=== PATIENT | female | born 1950 | race Caucasian/White ===

== ENCOUNTER 2020-05-04 22:47 | Emergency (ER) | payer MEDICARE, BC ==
[~2020-05-04 22:47] MED LIST: Iopamidol-370 76% 500 ML 1 ML ONE
[2020-05-04 23:19] LABS: #Eosinphils 0.1 thou/uL (0.0-0.7); #Lymphocytes 1.3 thou/uL (1.20-3.40); #Monocytes 1.1 thou/uL (0.11-0.59); #Neutrophils 9.7 thou/uL (1.40-6.50); %Basophils 0.2 % (0.0-1.0); %Eosinophils 0.8 % (0.0-10.0); %Lymphocytes 10.6 % (21.0-51.0); %Monocytes 8.7 % (0.0-10.0); %Neutrophils 79.6 % (42.0-75.0); Hemoglobin 15.7 g/dL (12.0-16.0); Mean Corpuscular HGB CONC 35.1 g/dL (32.0-36.0); Mean Corpuscular Hemoglobin 33.5 pg (27.0-31.0); Mean Corpuscular Volume 95.6 fL (78.0-98.0); Mean Platelet Volume 8.4 fL (7.4-10.4); Platelet Count 218 thou/uL (130-400); RBC Distribution Width 13.4 % (11.5-14.5); Red Blood Cell (RBC) Count 4.67 mill/uL (4.20-5.40); White Blood Cell (WBC) Count 12.2 thou/uL (4.8-10.8)
[2020-05-04] MEDS ORDERED: Ondansetron PF 4 MG/2 ML Vial ONE (23:26)
[2020-05-04] MEDS ORDERED: Morphine 4 MG/ML VIAL ONE (23:26)
[2020-05-04 23:40] LABS: ALT (SGPT) 29 U/L (8-55); AST (SGOT) 22 U/L (5-34); Albumin 4.1 g/dL (3.4-4.8); Alkaline Phosphatase 46 U/L (40-110); Anion Gap 15 mmol/L (10-20); BUN (Urea Nitrogen) 28 mg/dL (9.8-20.1); Bilirubin, Total 0.5 mg/dL (0.2-1.2); Calc. Creatinine Clearance 0 mL/min (70-130); Calcium 10.1 mg/dL (7.8-10.44); Carbon Dioxide 27 mmol/L (23-31); Chloride 99 mmol/L (98-107); Estimated GFR-MDRD 76; Globulin 2.7 g/dL (2.4-3.5); Glucose 191 mg/dL (83-110); Lipase 56 U/L (8-78); Potassium 3.6 mmol/L (3.5-5.1); Protein, Total 6.8 g/dL (6.0-8.3); Sodium 137 mmol/L (136-145)
[2020-05-05 00:59] LABS: Bacteria/HPF None Seen HPF (None Seen); Bilirubin Negative (Negative); Blood, Urine Trace (Negative); Clarity Clear (Clear); Glucose, Urine (Dipstick) Normal (Negative); Leukocyte 500 Leu/uL (Negative); Nitrite Negative (Negative); Protein, Urine (Dipstick) 10 mg/dL (Neg-Trace); Squamous Epithelial None Seen HPF (0-3); Urobilinogen Normal mg/dL (Less than 2); WBC/HPF Greater than 50 HPF (0-3)
--- NOTE | 2020-05-05 08:33 | CT ---
PRELIMINARY REPORT/[facility]/EMERGENCY AFTER HOURS PROCEDURE EXAM: CT Abdomen and Pelvis with Intravenous Contrast CLINICAL HISTORY: HX OF DIVERTICULITIS. PT REPORTS LLQ PAIN. SHARP PAIN. DENIES N/V/D. REPORTS BEGAN AT 2129. Surgical hx of hernia repair. Past medical hx of breast cancer TECHNIQUE: Axial computed tomography images of the abdomen and pelvis with intravenous contrast. CONTRAST: With; ISOVUE 370. 85ML COMPARISON: None provided. FINDINGS: LUNG BASES: No basilar airspace consolidation or pleural effusion. LIVER: Unremarkable. GALLBLADDER AND BILE DUCTS: The gallbladder is contracted. PANCREAS: Unremarkable. SPLEEN: Unremarkable. ADRENAL GLANDS: Unremarkable. KIDNEYS, URETERS, AND BLADDER: Unremarkable. No hydronephrosis or nephrolithiasis. No ureteral or bladder calculi. STOMACH AND BOWEL: There is a mild diverticulitis of the sigmoid colon, no CT evidence of perforation or abscess formati on. APPENDIX: No CT evidence for appendicitis. PERITONEUM: No free fluid. No free air. LYMPH NODES: No lymphadenopathy. REPRODUCTIVE: There is a calcific density in the uterus, likely represent the fibroid. VASCULATURE: No aortic aneurysm. BONES: No fracture or suspicious osseous abnormality. ABDOMINAL WALL AND SOFT TISSUES: Unremarkable. IMPRESSION: 1. There is a mild diverticulitis of the sigmoid colon, no CT evidence of perforation or abscess form ation. 2. There is a calcific density in the uterus, likely represent the fibroid. ELECTRONICALLY SIGNED BY: Marce Nix MD May 05, 2020 12:33:03 AM CDT This report is intended for review by the ordering physician only, in accordance of law. If you recei ve this report in error, please call [facility] at [phone]. FINAL REPORT CT ABDOMEN AND PELVIS: I agree with the preliminary report given by Marce Nix [facility]. POS: [facility]
--- NOTE | 2020-05-10 14:39 | EKG ---
Test Reason : Blood Pressure : / mmHG Vent. Rate : 066 BPM Atrial Rate : 066 BPM P-R Int : 142 ms QRS Dur : 070 ms QT Int : 360 ms P-R-T Axes : 046 022 030 degrees QTc Int : 377 ms Sinus rhythm with occasional Premature ventricular complexes Lateral infarct , age undetermined Abnormal ECG Confirmed by ELZBIETA TEJADA ([id number]), index editor [employer] ([id number]) on 05/10/2020 2:38:53 PM Referred By: Confirmed By:ELZBIETA TEJADA
== END 2020-05-05 01:05 | disposition home or self-care (01) ==
LOC: ERS 22:47
DX: K57.32 Diverticulitis of large intestine without perforation or abscess without bleeding (principal); E78.00 Pure hypercholesterolemia, unspecified; Z79.899 Other long term (current) drug therapy; Z85.3 Personal history of malignant neoplasm of breast
CPT/HCPCS: 36415; 74177; 80053; 81003; 81015; 83690; 85025; 93005; J2270; J2405; Q9967

== ENCOUNTER 2020-05-05 22:29 | Inpatient (IN) | payer MEDICARE, BC ==
[~2020-05-05 22:29] MED LIST changes: +Iopamidol 370 76% 100 ML VIAL ONE; -Iopamidol-370 76% 500 ML 1 ML ONE
[2020-05-05] MEDS ORDERED: Fentanyl 100 MCG/2 ML VIAL ONE (23:19)
[2020-05-05 23:51] LABS: Hemoglobin 16.8 g/dL (12.0-16.0); Mean Corpuscular HGB CONC 34.3 g/dL (32.0-36.0); Mean Corpuscular Volume 96.3 fL (78.0-98.0); Mean Platelet Volume 8.5 fL (7.4-10.4); Platelet Count 208 thou/uL (130-400); RBC Distribution Width 13.7 % (11.5-14.5); White Blood Cell (WBC) Count 17.1 thou/uL (4.8-10.8)
[2020-05-05] MEDS ORDERED: metroNIDAZOLE 500 MG in Premix Bag 1 BAG IVPB SCH (23:59)
[2020-05-06 00:18] LABS: Band 4 % (5-11); Lymphocytes 6 % (21-51); MDiff Complete? YES; Monocytes 3 % (0-10); Neutrophil 87 % (42-75); Platelet Morphology Comment Appears Adequate; RBC Morphology Normal
[2020-05-06 00:19] LABS: ALT (SGPT) 26 U/L (8-55); AST (SGOT) 34 U/L (5-34); Albumin 4.2 g/dL (3.4-4.8); Alkaline Phosphatase 46 U/L (40-110); Anion Gap 16 mmol/L (10-20); BUN (Urea Nitrogen) 28 mg/dL (9.8-20.1); Bilirubin, Total 0.6 mg/dL (0.2-1.2); Calc. Creatinine Clearance 0 mL/min (70-130); Calcium 10.4 mg/dL (7.8-10.44); Carbon Dioxide 27 mmol/L (23-31); Chloride 98 mmol/L (98-107); Estimated GFR-MDRD 64; Globulin 3.1 g/dL (2.4-3.5); Glucose 261 mg/dL (83-110); Lipase 34 U/L (8-78); Potassium 4.3 mmol/L (3.5-5.1); Protein, Total 7.3 g/dL (6.0-8.3); Sodium 137 mmol/L (136-145)
[2020-05-06 01:22] LABS: Bacteria/HPF None Seen HPF (None Seen); Bilirubin Negative (Negative); Blood, Urine 1+ (Negative); Clarity Clear (Clear); Glucose, Urine (Dipstick) >=1000 mg/dL (Negative); Leukocyte 250 Leu/uL (Negative); Nitrite Negative (Negative); Protein, Urine (Dipstick) 10 mg/dL (Neg-Trace); Squamous Epithelial 0-3 HPF (0-3); Urobilinogen Normal mg/dL (Less than 2); WBC/HPF 21-50 HPF (0-3)
[2020-05-06] MEDS ORDERED: D5 1/2 NS w/20 mEq KCL 1,000 ML IV SCH (02:30)
[2020-05-06] MEDS ORDERED: Ondansetron PF 4 MG/2 ML Vial IVP PRN ×2 (02:30→08:47)
[2020-05-06] MEDS ORDERED: Ondansetron ODT 4 MG TAB SL PRN (02:30)
[2020-05-06] MEDS ORDERED: Morphine 4 MG/ML VIAL SLOW IVP PRN (02:32)
[2020-05-06 02:51] VITALS: BMI 36.5
[2020-05-06] MEDS: Piperacillin/Tazobactam 4.5 GM in Sodium Chloride 0.9% 100 ML IVPB SCH ×3 (05:16→21:02)
--- NOTE | 2020-05-06 07:43 | CT ---
PRELIMINARY REPORT/[facility]/EMERGENCY AFTER HOURS PROCEDURE: This report was discussed with Jaclyn Hernandes MD by Tressa Cesar on May 06, 2020 01:11:00 CDT. A ddendum electronically signed by Tressa Cesar on May 06, 2020 1:11:29 AM CDT EXAM: CT Abdomen and Pelvis with Intravenous Contrast CLINICAL HISTORY: 70yo female presents for sudden worsening of LLQ abdominal pain. Diagnosed with div erticulitis last night, she started Flagyl and Levaquin this morning. This evening around 10pm she had sudden onset/worsening of sharp LLQ pain. Surgical hx of hernia repair. Medical hx of breast canc er TECHNIQUE: Axial computed tomography images of the abdomen and pelvis with intravenous contrast. CONTRAST: With; ISOVUE 370, 90ML COMPARISON: None provided. FINDINGS: LUNG BASES: Bibasilar subsegmental airspace disease. Mild cardiomegaly. Coronary artery disease. LIVER: The liver is hypoenhancing. GALLBLADDER AND BILE DUCTS: The gallbladder is contracted. No calcified stone. No ductal dilation. PANCREAS: Unremarkable. SPLEEN: The spleen is normal size. Multiple punctate Granulomas in the Spleen. ADRENAL GLANDS: Unremarkable. KIDNEYS, URETERS, AND BLADDER: Unremarkable. No hydronephrosis or nephrolithiasis. No ureteral or meredith dder calculi. STOMACH AND BOWEL: Colonic diverticulosis. There are wall thickening of multiple small bowel loops w ith adjacent fat straining. Colonic diverticulosis. Wall thickening of the sigmoid colon. Fat stranding around a sigmoid diverticulum. Adjacent air in the mesentery. APPENDIX: No CT evidence for appendicitis. PERITONEUM: No free fluid. No free air. LYMPH NODES: No lymphadenopathy. REPRODUCTIVE: Lobular appearance of the uterus. 3.5 cm coarsely calcified right-sided uterine fibroi d. 2.9 cm calcified fibroid at the uterine fundus. The ovaries are normal. VASCULATURE: No aortic aneurysm. Atherosclerosis. BONES: No fracture or suspicious osseous abnormality. Multilevel degenerative disc disease. Osteoar thritis of the bilateral hips and SI joints. ABDOMINAL WALL AND SOFT TISSUES: Unremarkable. IMPRESSION: Colonic diverticulosis with fat stranding and a sigmoid diverticulum with a small focus o f free air in the mesentery concerning for diverticulitis with perforation. Wall thickening of multiple small bowel loops with adjacent fat stranding concerning for an infectious or inflammatory e nteritis. Lobular appearance of ears with several fibroids. ELECTRONICALLY SIGNED BY: Juan Luis Harris MD May 06, 2020 1:06:17 AM CDT FINAL REPORT: EXAM: CT ABDOMEN AND PELVIS HISTORY: Left lower quadrant pain. Diverticulitis. Worsening pain. COMPARISON: 05/05/2020. Procedure: Multiple contiguous axial images were obtained and a CT of the abdomen and pelvis with IV contrast. C oronal reformats were performed. FINDINGS: Lower Chest: Chronic changes. Vessels: Normal caliber. Heart: Normal caliber. Abdomen: Portal vein:Patent. Gallbladder: Contracted due to nonfasting state. Liver: within normal limits. Pancreas: within normal limits. Spleen: within normal limits. Adrenals: within normal limits. Kidneys: Symmetric enhancement. No obstructive uropathy. Peritoneum: No ascites or free air, no fluid collection. Bowel: Limited evaluation due to the lack of oral contrast administration. No evidence of small bowel obstruction. There is bowel wall thickening involving jejunal loops. Correlate for enteritis. Ileocecal junction is unremarkable. Normal caliber appendix. Scattered diverticula throughout the col on. There is evidence of bowel wall thickening and pericolonic fat stranding involving the sigmoid colon. Mild diverticulitis is noted. No abscess. A small focus of extraluminal air may represent a co ntained perforation. The degree of inflammatory change has not significantly progressed. Mesentery and Retroperitoneum: No enlarged mesenteric or retroperitoneal lymph nodes. Abdominal Wall: within normal limits. Pelvis: Reproductive Organs: Stable degenerated and calcified leiomyomas. Pelvis: No mass, lymphadenopathy, free air or free fluid. Bladder: within normal limits. Bones: within normal limits. IMPRESSION: 1. This report is in agreement with initial report by [facility]. 2. Redemonstration of diverticulosis and diverticulitis. Small focus of extraluminal air may represen t a contained perforation. 3. Mild mucosal thickening involving segment of small bowel. Correlate for enteritis. Transcribed Date/Time: 05/06/2020 8:00 AM
[2020-05-06] MEDS ORDERED: Ondansetron ODT 4 MG TAB PO PRN (08:47)
[2020-05-06] MEDS ORDERED: Ondansetron ODT 8 MG TAB PO PRN (08:47)
[2020-05-06] MEDS ORDERED: Ondansetron ODT 8 MG TAB SL PRN (08:47)
[2020-05-06] MEDS ORDERED: Dextrose 50% Abboject 50 ML SYRINGE SLOW IVP PRN (08:50)
[2020-05-06] MEDS ORDERED: HumaLOG 300 UNITS/3 ML VIAL SC PRN (08:50)
[2020-05-06] MEDS ORDERED: Dextrose 5% in Water 1,000 ML IV PRN (08:50)
[2020-05-06] MEDS ORDERED: Dexamethasone 1 MG TAB PO SCH (09:15)
[2020-05-06] MEDS: Lactated Ringer's 1,000 ML IV SCH ×2 (12:33→20:43)
--- NOTE | 2020-05-06 13:03 | PDOC.FMACP ---
Advance Care Planning - Problem (1) Abdominal pain Status: Acute Code(s): R10.9 - UNSPECIFIED ABDOMINAL PAIN (2) Diverticulitis Status: Acute Code(s): K57.92 - DVTRCLI OF INTEST, PART UNSP, W/O PERF OR ABSCESS W/O BLEED - Note Participants: patient, palliative care Summary: Palliative Care was introduced and Advanced Care Planning was discussed, Ms Barrow was allowed an opportunity to decline. The diagnosis, prognosis and goals of care were discussed. Appropriate forms and documentation to accomplish the goals of care were discussed. MPOA was completed and Evelyn Barrow was made primary decision maker. Information in relation to Directive to Physicians was given. All questions were answered. Time Spent (mins): 25
[2020-05-06] MEDS: Morphine 4 MG/ML VIAL SLOW IVP PRN ×2 (15:30→20:45)
[2020-05-06] MEDS: levETIRAcetam 500 MG TAB PO SCH ×2 (17:08→20:49)
[2020-05-06] MEDS: Pantoprazole 40 MG VIAL IVP SCH (17:08)
[2020-05-06] MEDS: Lisinopril 20 MG TAB PO SCH (17:08)
[2020-05-06] MEDS: Rosuvastatin 10 MG TAB PO SCH (20:49)
[2020-05-06] MEDS: Enoxaparin Sodium 40 MG/0.4 ML SYRINGE SC SCH (20:50)
[2020-05-06] MEDS: Exemestane 25 MG TAB PO SCH (20:50)
--- NOTE | 2020-05-06 22:02 | HP ---
HISTORY OF PRESENT ILLNESS: Annabelle Barrow is a 70-year-old female, who lives with her daughter, admitted from the ER for diverticulitis. Two days ago, she was seen in the emergency room and diagnosed with diverticulitis and sent home with antibiotics. She states she returned and was admitted to the emergency room in the wee hours of the morning. She states her pain became exquisitely worse. White count was 17, hemoglobin 16, basic metabolic profile normal. CAT scan of the abdomen and pelvis obtained, she was noted to have chronic diverticulosis with wall thickening and multiple small loops of adjacent small bowel in left lower quadrant, colonic diverticulosis with thickening of sigmoid colon stranding consistent with diverticulitis. She had air in the mesentery. She was admitted for intravenous antibiotics, kept n.p.o. She has not had any nausea or vomiting. She has not had a fever. She states she feels better since being admitted. She states that in August or September 2019, she was seen for diverticulitis and sent to rehab for this, where she had antibiotics and strengthening. She states she sees Dr. Georgi Love for colonoscopy and has had polyps and is due for another colonoscopy soon in the 3-year interval. ALLERGIES: HYDROCODONE, TRAMADOL. SOCIAL HISTORY: Tobacco, none. Alcohol, none. MEDICATIONS: 1. Lisinopril. 2. Rosuvastatin. 3. Hydrochlorothiazide. 4. Exemestane. 5. Dexamethasone. 6. Furosemide. PAST MEDICAL HISTORY: Hypertension. History of breast cancer, status post left mastectomy. She has some minimal left-sided weakness after craniotomy for benign tumor, for which she underwent radiation and treatment for. She walks however unassisted. She notes having seen Dr. Gonzalez in the last few months, undergoing a cardiac stress test, it was unremarkable. She had some venous insufficiency, he is treating. He released her from a cardiac standpoint, told her heart was good. PAST SURGICAL HISTORY: Umbilical hernia repair, left mastectomy, colonoscopies with polypectomies, due anytime now for a 3-year interval colonoscopy. She is treated for elevated cholesterol. PHYSICAL EXAMINATION: VITAL SIGNS: Weight 68 kg (151 pounds), height 4 feet 6 inches, BMI 36. HEAD, EARS, EYES, NOSE AND THROAT: Unremarkable. LUNGS: Clear to auscultation. CARDIAC: Regular rate and rhythm without murmur or gallop. ABDOMEN: Protuberant, mildly tympanitic. Tenderness in the left lower quadrant with guarding in other quadrants. ABDOMEN: Soft without tenderness. Occasional bowel sounds. EXTREMITIES: No ankle edema. NEUROLOGICAL: Intact. LYMPHATICS: No lymphadenopathy in neck, groin, or axilla. LABORATORY DATA: BUN 28, creatinine 0.87, glucose 261, Accu-Chek 161, creatinine 0.87. White count 17, hemoglobin 16. ASSESSMENT AND PLAN: 1. Diverticulitis. She is due for colonoscopy in the near future with [facility]. I have encouraged her to pursue this in the next 4 to 8 weeks. She has diverticulitis and she seemed to be responding to intravenous antibiotics and bowel rest. We will continue that regimen. 2. Hypertension. 3. Elevated glucose. Check hemoglobin A1c in the morning. Accu-Cheks. We may need to obtain medical consult to address this. Job ID: [id number]
[2020-05-07] MEDS: Lactated Ringer's 1,000 ML IV SCH ×4 (05:05→22:53)
[2020-05-07] MEDS: Morphine 4 MG/ML VIAL SLOW IVP PRN ×2 (05:07→08:37)
[2020-05-07] MEDS: Piperacillin/Tazobactam 4.5 GM in Sodium Chloride 0.9% 100 ML IVPB SCH ×3 (05:11→21:24)
[2020-05-07 05:40] LABS: #Lymphocytes 1.5 thou/uL (1.20-3.40); #Monocytes 0.8 thou/uL (0.11-0.59); #Neutrophils 16.7 thou/uL (1.40-6.50); %Basophils 0.1 % (0.0-1.0); %Eosinophils 0.3 % (0.0-10.0); %Monocytes 4.2 % (0.0-10.0); %Neutrophils 87.5 % (42.0-75.0); Hemoglobin 16.2 g/dL (12.0-16.0); Mean Corpuscular HGB CONC 32.6 g/dL (32.0-36.0); Mean Corpuscular Hemoglobin 32.1 pg (27.0-31.0); Mean Corpuscular Volume 98.4 fL (78.0-98.0); Mean Platelet Volume 8.1 fL (7.4-10.4); Platelet Count 118 thou/uL (130-400); Platelet Morphology Comment Appears Decreased; RBC Distribution Width 13.6 % (11.5-14.5); Red Blood Cell (RBC) Count 5.06 mill/uL (4.20-5.40); White Blood Cell (WBC) Count 19.1 thou/uL (4.8-10.8)
[2020-05-07 05:47] LABS: Hemoglobin A1c 5.8 % (4.0-6.0)
[2020-05-07] MEDS: levETIRAcetam 500 MG TAB PO SCH ×2 (08:33→21:09)
[2020-05-07] MEDS: Pantoprazole 40 MG VIAL IVP SCH (08:35)
[2020-05-07] MEDS: Lisinopril 20 MG TAB PO SCH (09:29)
[2020-05-07] MEDS: Ketorolac Tromethamine 30 MG/ML VIAL IVP PRN (13:35)
--- NOTE | 2020-05-07 19:18 | PRG ---
DATE OF SERVICE: 05/07/2020 SUBJECTIVE: Annabelle Barrow is feeling better. She has not had a fever. Her pain is improved. She is reporting belching, but no flatus or bowel movements. OBJECTIVE: VITAL SIGNS: Temperature 98 degrees, pulse 67, blood pressure 95/36. This morning, her white count is 19, hemoglobin 16. Her differential is unremarkable. Her glucose is 109 to 119. LUNGS: Clear to auscultation. CARDIAC: Regular rate and rhythm murmur or gallop. ABDOMEN: Slightly distended and tympanitic. Guarding in her left lower quadrant. Upper abdomen is soft. EXTREMITIES: Unremarkable. ASSESSMENT AND PLAN: Diverticulitis. Her white count persists. She is on antibiotics. Bowel rest. She asked for liquids, but I have declined due to belching like a bowel activity. We will obtain abdominal x-rays in the morning. Repeat her laboratories. Make further recommendations on clinical course. Job ID: [id number]
[2020-05-07] MEDS: Rosuvastatin 10 MG TAB PO SCH (21:08)
[2020-05-07] MEDS: Enoxaparin Sodium 40 MG/0.4 ML SYRINGE SC SCH (21:09)
[2020-05-07] MEDS: Exemestane 25 MG TAB PO SCH (21:23)
[2020-05-08] MEDS: Ketorolac Tromethamine 30 MG/ML VIAL IVP PRN ×2 (05:32→21:13)
[2020-05-08] MEDS: Piperacillin/Tazobactam 4.5 GM in Sodium Chloride 0.9% 100 ML IVPB SCH ×3 (05:33→21:12)
[2020-05-08 06:13] LABS: #Lymphocytes 0.7 thou/uL (1.20-3.40); #Monocytes 0.7 thou/uL (0.11-0.59); #Neutrophils 14.7 thou/uL (1.40-6.50); %Basophils 0.1 % (0.0-1.0); %Eosinophils 0.2 % (0.0-10.0); %Lymphocytes 4.3 % (21.0-51.0); %Monocytes 4.5 % (0.0-10.0); %Neutrophils 90.9 % (42.0-75.0); Hemoglobin 16.7 g/dL (12.0-16.0); Mean Corpuscular HGB CONC 33.6 g/dL (32.0-36.0); Mean Corpuscular Hemoglobin 33.3 pg (27.0-31.0); Mean Corpuscular Volume 99.3 fL (78.0-98.0); Mean Platelet Volume 7.7 fL (7.4-10.4); Platelet Count 164 thou/uL (130-400); RBC Distribution Width 13.5 % (11.5-14.5); Red Blood Cell (RBC) Count 5.02 mill/uL (4.20-5.40); White Blood Cell (WBC) Count 16.1 thou/uL (4.8-10.8)
[2020-05-08 06:33] LABS: ALT (SGPT) 17 U/L (8-55); AST (SGOT) 22 U/L (5-34); Albumin 2.9 g/dL (3.4-4.8); Alkaline Phosphatase 49 U/L (40-110); Anion Gap 16 mmol/L (10-20); BUN (Urea Nitrogen) 14 mg/dL (9.8-20.1); Bilirubin, Total 0.8 mg/dL (0.2-1.2); Calc. Creatinine Clearance 100 mL/min (70-130); Calcium 8.7 mg/dL (7.8-10.44); Carbon Dioxide 20 mmol/L (23-31); Chloride 103 mmol/L (98-107); Estimated GFR-MDRD Greater than 90; Globulin 2.8 g/dL (2.4-3.5); Glucose 80 mg/dL (83-110); Potassium 3.5 mmol/L (3.5-5.1); Protein, Total 5.7 g/dL (6.0-8.3); Sodium 135 mmol/L (136-145)
--- NOTE | 2020-05-08 08:43 | RAD ---
RADIOGRAPH CHEST ONE VIEW RADIOGRAPH ABDOMEN 2 VIEWS: DATE: 05/08/2020 HISTORY: 70-year-old female with abdominal distention and diverticulitis. FINDINGS: There are no airspace densities or pulmonary edema. The lateral costophrenic angles are sharp. There is no evidence of pneumothorax or pneumoperitoneum. There are questionable bilateral small pleural effusions. There is no evidence of dilated small bowel loops. There are no differential air/fluid levels. IMPRESSION: 1) questionable bilateral small pleural effusions. Recommend lateral view of chest to confirm. 2) otherwise no acute pulmonary findings. 3) no evidence of bowel obstruction.
[2020-05-08] MEDS: Lactated Ringer's 1,000 ML IV SCH ×2 (09:05→16:28)
[2020-05-08] MEDS: levETIRAcetam 500 MG TAB PO SCH ×2 (09:08→21:13)
[2020-05-08] MEDS: Pantoprazole 40 MG VIAL IVP SCH (09:09)
[2020-05-08] MEDS: Lisinopril 20 MG TAB PO SCH (09:09)
--- NOTE | 2020-05-08 12:29 | PRG ---
DATE OF SERVICE: 05/08/2020 SUBJECTIVE: Annabelle Barrow is doing well today. She feels much better. Because of her protruded abdomen, I obtained x-rays, and these did not reveal any free air. Bowel gas pattern is nonspecific. OBJECTIVE: VITAL SIGNS: Temperature 98.2 degrees, respiratory rate 16, blood pressure 90/60. LUNGS: Clear to auscultation. CARDIAC: Regular rate and rhythm without murmur or gallop. ABDOMEN: Soft. Less tenderness in the left lower quadrant. Nontender elsewhere. LABORATORY DATA: White count 16,000, hemoglobin 16.7. Basic metabolic profile is normal. The patient reports passing flatus and having a bowel movement. ASSESSMENT AND PLAN: Diverticulitis. Overall, she feels better. We will plan to start her on clear liquids and advance her to full liquids in the morning. Anticipate possible discharge home tomorrow pending her clinical course. She should be on a low-fiber diet for 2 to 3 weeks, transition to high-fiber after that. We would recommend that she advance her diet slowly at home to a soft diet, low-fiber for 2 weeks, transition to high-fiber. We will have Dietary talk to her about this. We will reassess her tomorrow. Job ID: [id number]
[2020-05-08] MEDS ORDERED: Dexamethasone 4 MG TAB PO SCH (20:45)
[2020-05-08] MEDS: Rosuvastatin 10 MG TAB PO SCH (21:12)
[2020-05-08] MEDS: Enoxaparin Sodium 40 MG/0.4 ML SYRINGE SC SCH (21:13)
[2020-05-08] MEDS: Exemestane 25 MG TAB PO SCH (21:13)
[2020-05-09] MEDS: Lactated Ringer's 1,000 ML IV SCH ×2 (01:05→14:37)
[2020-05-09] MEDS: Piperacillin/Tazobactam 4.5 GM in Sodium Chloride 0.9% 100 ML IVPB SCH ×2 (05:47→14:37)
[2020-05-09 07:02] LABS: Mean Corpuscular HGB CONC 33.6 g/dL (32.0-36.0); Mean Corpuscular Hemoglobin 32.2 pg (27.0-31.0); Mean Corpuscular Volume 95.9 fL (78.0-98.0); Mean Platelet Volume 8.2 fL (7.4-10.4); Platelet Count 182 thou/uL (130-400); RBC Distribution Width 13.3 % (11.5-14.5); Red Blood Cell (RBC) Count 4.33 mill/uL (4.20-5.40); White Blood Cell (WBC) Count 13.5 thou/uL (4.8-10.8)
[2020-05-09 08:11] LABS: Band 3 % (5-11); Lymphocytes 8 % (21-51); MDiff Complete? YES; Monocytes 2 % (0-10); Neutrophil 87 % (42-75); Platelet Morphology Comment Appears Adequate; RBC Morphology Normal
[2020-05-09] MEDS: levETIRAcetam 500 MG TAB PO SCH (08:33)
[2020-05-09] MEDS: Lisinopril 20 MG TAB PO SCH (08:34)
[2020-05-09] MEDS: Dexamethasone 4 MG TAB PO SCH ×2 (08:34→12:37)
[2020-05-09] MEDS ORDERED: Acetaminophen 500 MG TAB PO PRN (13:24)
[2020-05-09] MEDS ORDERED: Ibuprofen 600 MG TAB PO PRN (13:24)
[2020-05-09] MEDS: Pantoprazole 40 MG VIAL IVP SCH (14:37)
[2020-05-09 16:07] VITALS: BP 113/59; TEMP 98.2
[2020-05-09] MEDS ORDERED: Amoxicillin/Potassium Clav 875 MG TAB PO SCH (21:00)
[2020-05-10] MEDS ORDERED: Polyethylene Glycol 3350 17 GM Packet PO SCH (09:00)
[2020-05-11] MEDS ORDERED: Dexamethasone 4 MG TAB PO SCH (08:00)
--- NOTE | 2020-05-11 15:08 | DIS ---
DATE OF ADMISSION: 05/06/2020 DATE OF DISCHARGE: 05/09/2020 DISCHARGE DIAGNOSES: Diverticulitis and morbid obesity. HOME MEDICATIONS: 1. Lisinopril/hydrochlorothiazide. 2. Dexamethasone. 3. Furosemide. 4. Levetiracetam. PROCEDURES DURING THIS HOSPITALIZATION: CAT scan of abdomen and pelvis, bowel rest, and intravenous antibiotics. DISCHARGE MEDICATIONS: Resume her home medications and Augmentin 500 b.i.d. for 10 days. FOLLOWUP: Follow up in my office in 3 to 4 weeks. Follow up with her endoscopy later this year as scheduled. HISTORY: A 70-year-old morbidly obese female presents with symptoms of diverticulitis. She was initially treated as an outpatient, but developed worsening pain. Seen in the emergency room, underwent a CAT scan demonstrating the diverticulitis changes, admitted. She was put at bowel rest, intravenous antibiotics, and as her pain resolved and her leukocytosis improved, her diet was advanced, she began having bowel movements. She has been afebrile. She was seen by dietary, counseled on a low-fiber diet for 2 weeks, transition to high-fiber after that. She has a relationship with personal companion, has colonoscopy planned later this year. She will resume her home medications and follow up in my office in 3 to 4 weeks. Job ID: [id number]
[2020-05-14] MEDS ORDERED: Dexamethasone 4 MG TAB PO SCH (08:00)
[2020-05-16] MEDS ORDERED: Dexamethasone 4 MG TAB PO SCH (08:00)
== END 2020-05-09 18:33 | disposition home or self-care (01) | DRG 392 ==
LOC: ERS 22:29 → SJJU 05-06 01:39
PROVIDERS: ADMIT Specialist; ATTEND Specialist
DX: K57.32 Diverticulitis of large intestine without perforation or abscess without bleeding (principal); I10 Essential (primary) hypertension; R73.9 Hyperglycemia, unspecified; E66.01 Morbid (severe) obesity due to excess calories; Z88.8 Allergy status to other drugs, medicaments and biological substances; Z85.3 Personal history of malignant neoplasm of breast; Z90.12 Acquired absence of left breast and nipple; Z68.36 Body mass index [BMI] 36.0-36.9, adult
CPT/HCPCS: 36415; 36416; 74022; 74177; 80053; 81003; 81015; 83036; 83690; 85025; 93005; 94760; 96365; 96366; 96368; 96374; 96375; C9113; J1650; J1885; J1956; J2270; J2405; J2543; J3010; J3480; J3490; J8540; Q9967

== ENCOUNTER 2020-05-10 22:31 | Emergency (ER) | payer MEDICARE, BC | END 2020-05-11 00:59 | disposition home or self-care (01) | LOC: ERS 22:31 | DX: R60.0 Localized edema (principal); E78.00 Pure hypercholesterolemia, unspecified; Z79.899 Other long term (current) drug therapy | CPT/HCPCS: 99283 ==

== ENCOUNTER 2020-05-12 13:03 | Emergency (ER) | payer MEDICARE, BC ==
--- NOTE | 2020-05-12 13:51 | RAD ---
RADIOGRAPH CHEST ONE VIEW RADIOGRAPH ABDOMEN 2 VIEWS: DATE: 05/12/2020 HISTORY: 70-year-old female with constipation. Unable to have bowel movement. FINDINGS: There are no airspace densities or pulmonary edema. The lateral costophrenic angles are sharp. There is no cardiomegaly. There is no evidence of pneumothorax or pneumoperitoneum. There is no evidence of dilated small bowel loops, differential air-fluid levels, or organomegaly. At least 2 moderately sized calcified uterine fibroids in the pelvis. IMPRESSION: 1) No acute cardiopulmonary findings. 2) no evidence of bowel obstruction.
== END 2020-05-12 16:19 | disposition home or self-care (01) ==
LOC: ERS 13:03
DX: K59.00 Constipation, unspecified (principal); K64.4 Residual hemorrhoidal skin tags; E78.00 Pure hypercholesterolemia, unspecified; Z85.3 Personal history of malignant neoplasm of breast; Z79.899 Other long term (current) drug therapy
CPT/HCPCS: 74022

== ENCOUNTER 2020-05-21 12:55 | Outpatient (CLI) | payer MEDICARE, BC ==
--- NOTE | 2020-05-21 14:09 | MRI ---
Exam: Brain MRI with and without contrast HISTORY: Follow-up meningioma. COMPARISON: 09/05/2019 FINDINGS: Gradient echo sequence: No hemorrhage Calvarium: Appropriate T1 marrow signal intensity. Stable postsurgical changes involving the right fr ontal and temporal calvarium. Midline brain parenchyma: Unremarkable Cerebrum:Stable postsurgical change with encephalomalacia and gliosis involving the right temporal lo be and to lesser extent right frontal lobe. There is decreased vasogenic edema involving the right frontal lobe. Ventricles: No evidence of hydrocephalus. Sinuses and mastoid air cells: Adequate aeration Diffusion: Central arterial flow is maintained. Absent restricted diffusion. Postcontrast images:Redemonstration of a partially calcified anterior right parafalcine meningioma wi th heterogeneous enhancement measuring 1.5 x 1.6 x 1.9 cm (previous the measuring 1.5 x 2.0 x 1.8 cm). Redemonstration of a meningioma centered in the right sphenoid bone with irregular/spiculated ap pearance of the sphenoid bone. There is abnormal enhancement extending into the lateral right orbit, extraconal in location. There is also decreasing abnormal soft tissue signal intensity with av id enhancement in the right unisaw operator space and posterior to the right maxillary sinus. This area of abnormal enhancement measures 2.3 x 3.0 cm (previously measuring 3.4 x 3.3 cm). There are no new f oci of abnormal intracranial or extracranial enhancement. IMPRESSION: 1. Redemonstration of a right parafalcine meningioma which is slightly decreased in size. 2. Abnormal enhancing soft tissue signal in the right middle cranial fossa with extension into the la teral right orbit as well as into the right unisaw operator space/posterior the right maxillary sinus. The degree of abnormal soft tissue has decreased. Transcribed Date/Time: 05/21/2020 2:28 PM
[2020-05-21] MEDS ORDERED: Magnevist 469MG/ML 20 ML VIAL ONE (16:40)
== END 2020-05-21 12:56 | disposition home or self-care (01) ==
LOC: MRI 12:55
PROVIDERS: ATTEND Neurological Surgery
DX: D32.0 Benign neoplasm of cerebral meninges (principal); R93.0 Abnormal findings on diagnostic imaging of skull and head, not elsewhere classified
CPT/HCPCS: 70553; A9579

== ENCOUNTER 2020-07-23 09:27 | Outpatient (CLI) | payer MEDICARE, BC ==
--- NOTE | 2020-07-23 11:56 | CT ---
ABDOMEN AND PELVIC CT SCAN WITH AND WITHOUT IV CONTRAST: Date: 07/23/2020 HISTORY: Lower abdominal pain, left lower quadrant and suprapubic pain. COMPARISON: 05/06/2020. 09/30/2019. FINDINGS: Minimal linear parenchymal and pleural based parenchymal changes in the lower lung zone, possibly sub segmental atelectasis or minimal chronic change. There are several small foci of free intraperitoneal air in the right upper quadrant adjacent to the right diaphragm and between the liver and diaphragm. Otherwise, liver, gallbladder, pancreas, spleen, and adrenal glands are unremarkable. No evidence fo r renal calculus or acute obstruction, or solid or cystic renal mass. No CT evidence for acute jasmyn endicitis. There is again noted to be extensive diverticulosis changes involving the sigmoid colon with some per icolonic fat stranding around the sigmoid colon in close association with the adjacent uterus and als o with the posterior bladder on the left side. There is an irregular thin-walled somewhat lobulated a ppearing air collection projecting off the sigmoid colon which is partially surrounding the uterus, m easuring 2.0 x 5.0 cm in size, probably representing a walled-off air collection from the sigmoid col on. There is minimal scattered fat stranding, evidence for some inflammatory change in this region ar ound the colon and around the bladder and around the uterus. No abnormal free intraperitoneal fluid. No evidence for a drainable abscess. IMPRESSION: 1. Evidence for chronic diverticulosis involving the left colon and persistent diverticulitis change s involving the sigmoid portion of the colon, now with a primary air collection extending from the co arie to a region around the uterus and to the edge of the bladder. Evidence for a walled-off extralumi nal collection. In addition, there are several small foci of free intraperitoneal air around the live r and between the liver and hemidiaphragm. 2. No significant drainable abscess or abnormal free intraperitoneal fluid. 3. Incidental multiple calcified uterine leiomyomas. Findings were discussed with Dr. Campo by phone at 1030 hours. CODE CR. POS: [facility]
[2020-07-23] MEDS ORDERED: Iopamidol 370 76% 100 ML VIAL ONE (13:32)
== END 2020-07-23 09:28 | disposition home or self-care (01) ==
LOC: BICCT 09:27
PROVIDERS: ATTEND Family Medicine
DX: K57.30 Diverticulosis of large intestine without perforation or abscess without bleeding (principal); R10.9 Unspecified abdominal pain; K57.32 Diverticulitis of large intestine without perforation or abscess without bleeding; D25.9 Leiomyoma of uterus, unspecified
CPT/HCPCS: 74178; Q9967

== ENCOUNTER 2020-12-29 08:58 | Outpatient (CLI) | payer MEDICARE, BC ==
[2020-12-29] MEDS ORDERED: Iopamidol-370 76% 500 ML 1 ML ONE (10:10)
[2020-12-29] MEDS ORDERED: Iopamidol 370 76% 50 ML VIAL FS ONE (10:10)
--- NOTE | 2020-12-29 11:45 | CT ---
CT ABDOMEN AND PELVIS WITH AND WITHOUT IV CONTRAST 12/29/2020 CLINICAL INFORMATION: Colovesical fistula. COMPARISON: 12/02/2020 Technique: Multiple contiguous axial CT images are obtained through the abdomen and pelvis with IV contrast. Cor onal reformatted images are provided. FINDINGS: Lower Chest: Dependent bibasilar atelectasis. Small hiatal hernia is present. Vessels: Vascular calcifications in the abdominal aorta and iliac arteries. Abdomen: Portal vein:Patent Gallbladder: Within normal limits for CT imaging. Liver: within normal limits. Spleen: Multiple splenic granulomata. Pancreas: within normal limits. Adrenals: within normal limits. Kidneys: within normal limits. Bowel: Small bowel loops are normal in caliber. Small amount retained fecal material seen throughout the colon. Multiple colonic diverticula are visualized. Again noted is the gas collection emanating from the inferior sigmoid colon which measures approximately 8.9 cm craniocaudal x5.9 cm AP x4.6 cm t ransverse and overall similar in size to the prior exam. This collection again abuts the posterior superior aspect of the lower urinary bladder with mild focal thickening of the wall of the urinary bl adder in this location. Gas is again seen within the urinary bladder. Arnett catheter is noted in place in the urinary bladder. Delayed imaging post cystogram does not demonstrate contrast within the large gas collection adjacent to the sigmoid colon which is again presumed to represent a contained rupture. Appendix: The appendix is visualized and normal in caliber. Peritoneum: No ascites or free air; no fluid collection. Mesentery and Retroperitoneum: No enlarged mesenteric or retroperitoneal lymph nodes. Abdominal Wall: within normal limits. Pelvis: Reproductive Organs: Calcified uterine fibroids are again seen. Low-density structure with calcificat ions posteriorly is again seen within the right posterior aspect of the uterine fundus which may also represent a uterine fibroid. Bladder: As described above. Bones: Bilateral hip osteoarthritis is present with degenerative changes in the spine. IMPRESSION: 1. Persistent large gas collection within the pelvis emanating from the sigmoid colon which is again likely reflective of a chronic contained perforation or less likely a giant colonic diverticulum. Gas is again present within urinary bladder which is suspicious for a colovesical fistula. However, a retrograde cystogram was performed demonstrating mild distention of a contrast-filled urinary bladder, but no contrast is seen extending into the large gas collection. 2. Colonic diverticulosis. 3. Hiatal hernia. 4. Multiple uterine fibroids with calcification of the majority of the uterine fibroids.
== END 2020-12-29 08:59 | disposition home or self-care (01) ==
LOC: CT 08:58
PROVIDERS: ATTEND Urology
DX: N32.1 Vesicointestinal fistula (principal); K57.32 Diverticulitis of large intestine without perforation or abscess without bleeding; K44.9 Diaphragmatic hernia without obstruction or gangrene; D25.9 Leiomyoma of uterus, unspecified; R14.3 Flatulence
CPT/HCPCS: 74178; 82565; Q9967

== ENCOUNTER 2021-04-28 07:46 | Inpatient (IN) | payer MEDICARE, BC ==
[2021-04-28] MEDS ORDERED: Iopamidol-370 76% 500 ML 1 ML ONE (08:53)
[2021-04-28 09:03] LABS: Clarity Turbid (Clear)
[2021-04-28 09:04] LABS: Bilirubin 1+ (Negative); Blood, Urine Large (Negative); Glucose, Urine (Dipstick) Negative (Negative); Ketone, Urine Negative (Negative); Leukocyte Large (Negative); Nitrite Negative (Negative); Protein, Urine (Dipstick) 100 mg/dL (Neg-Trace); Urobilinogen Normal mg/dL (Less than 2)
[2021-04-28 09:07] LABS: Bacteria/HPF 4+ HPF (None Seen); RBC/HPF 21-50 HPF (0-3); Squamous Epithelial 0-3 HPF (0-3); WBC/HPF Greater than 50 HPF (0-3)
[2021-04-28 09:43] LABS: ALT (SGPT) 13 U/L (8-55); AST (SGOT) 12 U/L (5-34); Albumin 3.3 g/dL (3.4-4.8); Alkaline Phosphatase 72 U/L (40-110); Anion Gap 14 mmol/L (10-20); BUN (Urea Nitrogen) 14 mg/dL (9.8-20.1); Bilirubin, Total 0.8 mg/dL (0.2-1.2); Calc. Creatinine Clearance 0 mL/min (70-130); Calcium 10.2 mg/dL (7.8-10.44); Carbon Dioxide 30 mmol/L (23-31); Chloride 100 mmol/L (98-107); Globulin 3.6 g/dL (2.4-3.5); Glucose 97 mg/dL (83-110); Lipase 29 U/L (8-78); Potassium 4.1 mmol/L (3.5-5.1); Protein, Total 6.9 g/dL (5.8-8.1); Sodium 140 mmol/L (136-145)
[2021-04-28 09:45] LABS: #Eosinphils 0.1 thou/uL (0.0-0.7); #Lymphocytes 1.4 thou/uL (1.20-3.40); #Monocytes 1.5 thou/uL (0.11-0.59); #Neutrophils 10.9 thou/uL (1.40-6.50); %Basophils 0.1 % (0.0-1.0); %Eosinophils 0.7 % (0.0-10.0); %Monocytes 10.5 % (0.0-10.0); %Neutrophils 78.6 % (42.0-75.0); Hemoglobin 15.2 g/dL (12.0-16.0); Mean Corpuscular HGB CONC 32.4 g/dL (32.0-36.0); Mean Corpuscular Hemoglobin 30.1 pg (27.0-31.0); Mean Corpuscular Volume 92.9 fL (78.0-98.0); Mean Platelet Volume 7.5 fL (7.4-10.4); Platelet Count 200 thou/uL (130-400); RBC Distribution Width 12.9 % (11.5-14.5); Red Blood Cell (RBC) Count 5.05 mill/uL (4.20-5.40); White Blood Cell (WBC) Count 13.9 thou/uL (4.8-10.8)
[2021-04-28] MEDS ORDERED: cefTRIAXone\\ROCEPHIN 2 GM VIAL ONE (11:16)
[2021-04-28] MEDS ORDERED: Piperacillin/Tazobactam 4.5 GM VIAL ONE (12:23)
[2021-04-28 12:41] LABS: SARS-CoV-2 NAA Rapid Test Not Detected (NotDetected)
[2021-04-28] MEDS ORDERED: Midazolam HCl 2 mg/2 ml Vial ONE (14:34)
[2021-04-28] MEDS ORDERED: Fentanyl 100 MCG/2 ML VIAL ONE ×4 (14:34→19:01)
[2021-04-28] MEDS ORDERED: Glycopyrrolate 0.2 MG/ML 5 ML SYRINGE ONE (15:27)
[2021-04-28] MEDS ORDERED: Lidocaine 1% PF 5 ML VIAL ONE (15:27)
[2021-04-28] MEDS ORDERED: PROPOFOL 200 MG/20 ML VIAL ONE (15:27)
[2021-04-28] MEDS ORDERED: Bupivacaine 0.25% HCL 30 ML VIAL ONE (15:27)
[2021-04-28] MEDS ORDERED: Succinylcholine 200 MG/10 ml SYRINGE FS ONE (15:27)
[2021-04-28] MEDS ORDERED: Rocuronium Bromide 10 MG/ML (10ML VIAL) ONE (15:27)
[2021-04-28] MEDS ORDERED: Sodium Chloride 0.9% 30 ML ONE (16:59)
[2021-04-28] MEDS ORDERED: Ondansetron PF 4 MG/2 ML Vial IVP PRN (17:45)
[2021-04-28] MEDS ORDERED: Morphine 2 MG/ML VIAL SLOW IVP PRN (17:45)
[2021-04-28] MEDS ORDERED: hydrALAZINE 20 MG/ML VIAL SLOW IVP PRN (17:45)
[2021-04-28] MEDS ORDERED: Ketorolac Tromethamine 30 MG/ML VIAL ONE (18:09)
[2021-04-28 21:07] VITALS: BMI 33.2
[2021-04-28] MEDS: Lactated Ringer's 1,000 ML IV SCH ×2 (21:38→22:30)
[2021-04-28] MEDS ORDERED: levETIRAcetam 500 MG TAB PO SCH (22:15)
[2021-04-28] MEDS: Famotidine/PF 20 mg/2ml Vial SLOW IVP SCH (22:18)
[2021-04-28] MEDS: Enoxaparin Sodium 40 MG/0.4 ML SYRINGE SC SCH (22:19)
[2021-04-28] MEDS: Piperacillin/Tazobactam 4.5 GM in Sodium Chloride 0.9% 100 ML IVPB SCH (22:19)
[2021-04-28] MEDS: Morphine 4 MG/ML VIAL SLOW IVP PRN (22:32)
[2021-04-29] MEDS: Scopolamine 1.5 mg/72 hour Patch TD SCH (02:33)
[2021-04-29] MEDS: Morphine 4 MG/ML VIAL SLOW IVP PRN ×3 (04:42→20:08)
[2021-04-29] MEDS: Piperacillin/Tazobactam 4.5 GM in Sodium Chloride 0.9% 100 ML IVPB SCH ×3 (04:42→20:08)
[2021-04-29 06:08] LABS: #Lymphocytes 0.8 thou/uL (1.20-3.40); #Monocytes 0.6 thou/uL (0.11-0.59); #Neutrophils 7.8 thou/uL (1.40-6.50); %Basophils 0.1 % (0.0-1.0); %Lymphocytes 8.2 % (21.0-51.0); %Monocytes 6.9 % (0.0-10.0); %Neutrophils 84.8 % (42.0-75.0); Hemoglobin 13.5 g/dL (12.0-16.0); Mean Corpuscular HGB CONC 32.4 g/dL (32.0-36.0); Mean Corpuscular Hemoglobin 30.1 pg (27.0-31.0); Platelet Count 240 thou/uL (130-400); RBC Distribution Width 12.8 % (11.5-14.5); Red Blood Cell (RBC) Count 4.49 mill/uL (4.20-5.40); White Blood Cell (WBC) Count 9.1 thou/uL (4.8-10.8)
[2021-04-29 06:38] LABS: Anion Gap 11 mmol/L (10-20); BUN (Urea Nitrogen) 14 mg/dL (9.8-20.1); Calc. Creatinine Clearance 97 mL/min (70-130); Carbon Dioxide 26 mmol/L (23-31); Chloride 104 mmol/L (98-107); Glucose 103 mg/dL (83-110); Potassium 3.9 mmol/L (3.5-5.1); Sodium 137 mmol/L (136-145)
[2021-04-29] MEDS: Lactated Ringer's 1,000 ML IV SCH ×2 (06:42→07:45)
[2021-04-29] MEDS: Ketorolac Tromethamine 30 MG/ML VIAL IVP PRN ×3 (07:46→20:03)
[2021-04-29] MEDS: Famotidine/PF 20 mg/2ml Vial SLOW IVP SCH ×2 (07:47→20:03)
[2021-04-29] MEDS: levETIRAcetam 500 MG TAB PO SCH ×2 (07:47→20:03)
[2021-04-29] MEDS: Enoxaparin Sodium 40 MG/0.4 ML SYRINGE SC SCH (20:03)
[2021-04-30] MEDS: Ketorolac Tromethamine 30 MG/ML VIAL IVP PRN (05:03)
[2021-04-30] MEDS: Piperacillin/Tazobactam 4.5 GM in Sodium Chloride 0.9% 100 ML IVPB SCH ×3 (05:03→19:46)
[2021-04-30] MEDS: Lactated Ringer's 1,000 ML IV SCH ×4 (06:13→19:46)
[2021-04-30] MEDS: levETIRAcetam 500 MG TAB PO SCH ×2 (09:59→19:46)
[2021-04-30] MEDS: Famotidine/PF 20 mg/2ml Vial SLOW IVP SCH ×2 (10:00→19:45)
[2021-04-30] MEDS: Enoxaparin Sodium 40 MG/0.4 ML SYRINGE SC SCH (19:45)
[2021-05-01] MEDS: Ketorolac Tromethamine 30 MG/ML VIAL IVP PRN ×3 (00:36→19:49)
[2021-05-01] MEDS: Lactated Ringer's 1,000 ML IV SCH ×2 (04:10→13:10)
[2021-05-01] MEDS: Piperacillin/Tazobactam 4.5 GM in Sodium Chloride 0.9% 100 ML IVPB SCH ×3 (04:10→19:48)
[2021-05-01] MEDS: Famotidine/PF 20 mg/2ml Vial SLOW IVP SCH (08:42)
[2021-05-01] MEDS: levETIRAcetam 500 MG TAB PO SCH ×2 (08:42→19:48)
[2021-05-01] MEDS ORDERED: Polyethylene Glycol 3350 17 GM Packet PO SCH (09:00)
[2021-05-01] MEDS ORDERED: Acetaminophen 500 MG TAB PO PRN ×2 (14:46→14:50)
[2021-05-01] MEDS ORDERED: Ibuprofen 600 MG TAB PO PRN (14:50)
[2021-05-01] MEDS ORDERED: Ibuprofen 200 MG TAB PO PRN (14:54)
[2021-05-01] MEDS ORDERED: [UNRECOGNIZED DRUG - OTHER] TOP PRN (14:57)
[2021-05-01] MEDS: Scopolamine 1.5 mg/72 hour Patch TD SCH (16:26)
[2021-05-01] MEDS: Gabapentin 300 MG CAP PO SCH (19:48)
[2021-05-01] MEDS: Enoxaparin Sodium 40 MG/0.4 ML SYRINGE SC SCH (19:49)
[2021-05-01] MEDS ORDERED: Rosuvastatin 20 MG TAB PO SCH (21:00)
[2021-05-01] MEDS ORDERED: Loratadine/Pseudoephedrine 10/240 mg Tablet PO SCH (21:00)
[2021-05-02] MEDS: Piperacillin/Tazobactam 4.5 GM in Sodium Chloride 0.9% 100 ML IVPB SCH (05:12)
[2021-05-02 08:20] VITALS: TEMP 98.2
[2021-05-02] MEDS ORDERED: Polyethylene Glycol 3350 17 GM Packet PO SCH (09:00)
[2021-05-02] MEDS ORDERED: Lisinopril 20 MG TAB PO SCH (09:00)
[2021-05-02] MEDS ORDERED: Hydrochlorothiazide 25 MG TAB PO SCH (09:00)
[2021-05-02] MEDS ORDERED: Citrucel 500 MG TAB PO SCH (09:00)
[2021-05-02] MEDS ORDERED: Furosemide 20 MG TAB PO SCH (09:00)
[2021-05-02] MEDS: Gabapentin 300 MG CAP PO SCH (09:27)
[2021-05-02] MEDS: levETIRAcetam 500 MG TAB PO SCH (09:28)
[2021-05-02] MEDS ORDERED: Amoxicillin/Potassium Clav 500 MG TAB PO SCH (12:00)
[2021-05-02 16:14] VITALS: BP 126/77
== END 2021-05-02 17:37 | DRG 329 ==
LOC: ERS 07:46 → SURG B 17:45
PROVIDERS: ADMIT Specialist; ATTEND Specialist
PROC: 0DBM0ZZ Excision of Descending Colon, Open Approach (ICD-10-PCS; principal; 2021-04-28)
PROC: 0D1N0Z4 Bypass Sigmoid Colon to Cutaneous, Open Approach (ICD-10-PCS; 2021-04-28)
PROC: 0DBN0ZZ Excision of Sigmoid Colon, Open Approach (ICD-10-PCS; 2021-04-28)
PROC: 0DB80ZZ Excision of Small Intestine, Open Approach (ICD-10-PCS; 2021-04-28)
PROC: 02HV33Z Insertion of Infusion Device into Superior Vena Cava, Percutaneous Approach (ICD-10-PCS; 2021-04-28)
PROC: 0T9B70Z Drainage of Bladder with Drainage Device, Via Natural or Artificial Opening (ICD-10-PCS; 2021-04-28)
PROC: 0TPBX0Z Removal of Drainage Device from Bladder, External Approach (ICD-10-PCS; 2021-05-01)
DX: K57.20 Diverticulitis of large intestine with perforation and abscess without bleeding (principal); K65.9 Peritonitis, unspecified; N32.1 Vesicointestinal fistula; N39.0 Urinary tract infection, site not specified; Z20.822 Contact with and (suspected) exposure to COVID-19; K66.8 Other specified disorders of peritoneum; E78.00 Pure hypercholesterolemia, unspecified; I10 Essential (primary) hypertension; M85.80 Other specified disorders of bone density and structure, unspecified site; Z85.3 Personal history of malignant neoplasm of breast; Z88.5 Allergy status to narcotic agent; Z79.899 Other long term (current) drug therapy; Z98.890 Other specified postprocedural states; Z79.890 Hormone replacement therapy; Z79.52 Long term (current) use of systemic steroids; I25.2 Old myocardial infarction
CPT/HCPCS: 36415; 51600; 71045; 74177; 74430; 80048; 80053; 81003; 81015; 83690; 84484; 85025; 88307; 93005; 96365; 96366; 96367; J0696; J1650; J1885; J2250; J2270; J2405; J2543; J2704; J3010; J3490; Q9967; S0020; S0028; U0002; U0005

== ENCOUNTER → 2021-07-01 | Outpatient (CLI) | payer MEDICARE, BC | LOC: TBSIIMAG 13:30 | PROVIDERS: ATTEND Neurological Surgery | DX: C71.9 Malignant neoplasm of brain, unspecified (principal); G93.6 Cerebral edema; R90.89 Other abnormal findings on diagnostic imaging of central nervous system; Z98.890 Other specified postprocedural states | CPT/HCPCS: 70553 ==

== ENCOUNTER 2021-10-04 09:25 | Emergency (ER) | payer MEDICARE, BC ==
[2021-10-04] MEDS ORDERED: Iopamidol-370 76% 500 ML 1 ML ONE (10:00)
[2021-10-04 10:16] LABS: #Eosinphils 0.1 thou/uL (0.0-0.7); #Lymphocytes 0.7 thou/uL (1.20-3.40); #Monocytes 0.5 thou/uL (0.11-0.59); %Basophils 0.2 % (0.0-1.0); %Eosinophils 0.6 % (0.0-10.0); %Lymphocytes 7.7 % (21.0-51.0); %Monocytes 5.4 % (0.0-10.0); %Neutrophils 86.1 % (42.0-75.0); Hemoglobin 16.2 g/dL (12.0-16.0); Mean Corpuscular HGB CONC 33.5 g/dL (32.0-36.0); Mean Corpuscular Hemoglobin 28.9 pg (27.0-31.0); Mean Corpuscular Volume 86.3 fL (78.0-98.0); Platelet Count 123 thou/uL (130-400); RBC Distribution Width 16.7 % (11.5-14.5); Red Blood Cell (RBC) Count 5.61 mill/uL (4.20-5.40); White Blood Cell (WBC) Count 9.2 thou/uL (4.8-10.8)
[2021-10-04 10:37] LABS: ALT (SGPT) 13 U/L (8-55); AST (SGOT) 19 U/L (5-34); Albumin 3.9 g/dL (3.4-4.8); Alkaline Phosphatase 71 U/L (40-110); Anion Gap 15 mmol/L (10-20); BUN (Urea Nitrogen) 12 mg/dL (9.8-20.1); Calc. Creatinine Clearance 0 mL/min (70-130); Calcium 9.8 mg/dL (7.8-10.44); Carbon Dioxide 22 mmol/L (23-31); Chloride 104 mmol/L (98-107); Globulin 3.6 g/dL (2.4-3.5); Glucose 100 mg/dL (83-110); Lipase 45 U/L (8-78); Potassium 3.7 mmol/L (3.5-5.1); Protein, Total 7.5 g/dL (5.8-8.1); Sodium 137 mmol/L (136-145)
[2021-10-04 11:02] LABS: Bacteria/HPF None Seen HPF (None Seen); Bilirubin Negative (Negative); Blood, Urine Negative (Negative); Clarity Clear (Clear); Glucose, Urine (Dipstick) Normal (Negative); Ketone, Urine Negative (Negative); Leukocyte 25 Leu/uL (Negative); Nitrite Negative (Negative); Protein, Urine (Dipstick) Negative (Neg-Trace); RBC/HPF 0-3 HPF (0-3); Specific Gravity, Urine 1.006 (1.002-1.036); Squamous Epithelial 0-3 HPF (0-3); Urobilinogen Normal mg/dL (Less than 2); WBC/HPF 0-3 HPF (0-3); pH, Urine 6.5 (5.0-9.0)
[2021-10-04] MEDS ORDERED: Acetaminophen 500 MG TAB ONE (12:38)
[2021-10-04] MEDS ORDERED: Ibuprofen 200 MG TAB ONE (12:38)
== END 2021-10-04 12:46 | disposition home or self-care (01) ==
LOC: ERS 09:25
DX: K43.5 Parastomal hernia without obstruction or gangrene (principal); D69.6 Thrombocytopenia, unspecified; R50.9 Fever, unspecified; I10 Essential (primary) hypertension; Z79.899 Other long term (current) drug therapy; E78.00 Pure hypercholesterolemia, unspecified; M79.605 Pain in left leg
CPT/HCPCS: 36415; 74177; 80053; 81003; 81015; 83690; 85025; Q9967

== ENCOUNTER 2021-10-07 10:45 | Inpatient (IN) | payer MEDICARE, BC ==
[2021-10-09 12:46] VITALS: BMI 32.8
[2021-10-12] MEDS ORDERED: Acetaminophen 500 MG TAB ONE (06:35)
[2021-10-12] MEDS ORDERED: Ketorolac Tromethamine 30 MG/ML VIAL ONE ×2 (06:35→11:53)
[2021-10-12] MEDS ORDERED: cefOXitin Sodium/Dextrose 2 GM/50 ML BAG ONE ×2 (06:35→09:28)
[2021-10-12] MEDS ORDERED: Bupivacaine 0.25% HCL 30 ML VIAL ONE (06:44)
[2021-10-12] MEDS ORDERED: Lidocaine 1% w/Epinephrine 1:100K 20 ML VIAL ONE (06:44)
[2021-10-12] MEDS ORDERED: Fentanyl 100 MCG/2 ML VIAL ONE ×3 (06:47→12:21)
[2021-10-12] MEDS ORDERED: Midazolam HCl 2 mg/2 ml Vial ONE (07:17)
[2021-10-12] MEDS ORDERED: PHENYLEPHRINE-NS 100 MCG/ML 10 ML SYRINGE ONE (07:48)
[2021-10-12] MEDS ORDERED: Dexamethasone 20 MG/5 ML VIAL ONE (07:48)
[2021-10-12] MEDS ORDERED: Rocuronium Bromide 10 MG/ML (10ML VIAL) ONE (07:48)
[2021-10-12] MEDS ORDERED: Ondansetron PF 4 MG/2 ML Vial ONE (07:48)
[2021-10-12] MEDS ORDERED: Lidocaine 1% PF 5 ML VIAL ONE (07:48)
[2021-10-12] MEDS ORDERED: PROPOFOL 200 MG/20 ML VIAL ONE (07:48)
[2021-10-12] MEDS ORDERED: Glycopyrrolate 0.2 MG/ML 5 ML SYRINGE ONE (07:48)
[2021-10-12] MEDS ORDERED: Bupivacaine HCl 0.5%/Epinephrine 1:200,000/PF 30 ml Vial ONE (07:48)
[2021-10-12] MEDS ORDERED: Sodium Chloride 0.9% 20 ML ONE (08:02)
[2021-10-12] MEDS ORDERED: ceFOXitin 1 GM VIAL ONE (09:28)
[2021-10-12] MEDS ORDERED: Ondansetron HCl/PF 4 MG/2 ML Vial IVP PRN (10:13)
[2021-10-12] MEDS ORDERED: Ondansetron PF 4 MG/2 ML Vial IVP PRN (11:31)
[2021-10-12] MEDS ORDERED: hydrALAZINE 20 MG/ML VIAL SLOW IVP PRN (11:31)
[2021-10-12] MEDS ORDERED: predniSONE 20 MG TAB PO SCH (11:45)
[2021-10-12] MEDS ORDERED: Morphine 4 MG/ML VIAL SLOW IVP PRN (12:54)
[2021-10-12] MEDS: Ketorolac Tromethamine 30 MG/ML VIAL IVP SCH ×2 (12:56→17:35)
[2021-10-12] MEDS: Acetaminophen 500 MG TAB PO SCH ×2 (13:54→17:34)
[2021-10-12] MEDS: D5 1/2 NS w/20 mEq KCL 1,000 ML IV SCH ×2 (13:55→20:19)
[2021-10-12] MEDS: Morphine 4 MG/ML VIAL SLOW IVP PRN ×2 (14:59→17:35)
[2021-10-12] MEDS: Famotidine 20 MG TAB PO SCH (20:18)
[2021-10-12] MEDS: levETIRAcetam 500 MG TAB PO SCH (20:18)
[2021-10-12] MEDS: Enoxaparin Sodium 40 MG/0.4 ML SYRINGE SC SCH (20:18)
[2021-10-12] MEDS: Famotidine/PF 20 mg/2ml Vial SLOW IVP SCH (20:27)
[2021-10-13] MEDS: Ketorolac Tromethamine 30 MG/ML VIAL IVP SCH ×5 (00:27→23:41)
[2021-10-13] MEDS: Acetaminophen 500 MG TAB PO SCH ×4 (00:28→17:47)
[2021-10-13] MEDS: D5 1/2 NS w/20 mEq KCL 1,000 ML IV SCH ×3 (04:27→20:34)
[2021-10-13 06:09] LABS: #Lymphocytes 1.3 thou/uL (1.20-3.40); #Monocytes 0.8 thou/uL (0.11-0.59); %Basophils 0.2 % (0.0-1.0); %Eosinophils 0.1 % (0.0-10.0); %Lymphocytes 9.3 % (21.0-51.0); %Monocytes 5.3 % (0.0-10.0); %Neutrophils 85.1 % (42.0-75.0); Hemoglobin 13.7 g/dL (12.0-16.0); Mean Corpuscular HGB CONC 31.4 g/dL (32.0-36.0); Mean Corpuscular Hemoglobin 28.6 pg (27.0-31.0); Mean Platelet Volume 7.3 fL (7.4-10.4); Platelet Count 206 thou/uL (130-400); RBC Distribution Width 17.2 % (11.5-14.5); Red Blood Cell (RBC) Count 4.79 mill/uL (4.20-5.40); White Blood Cell (WBC) Count 14.1 thou/uL (4.8-10.8)
[2021-10-13 06:32] LABS: Anion Gap 10 mmol/L (10-20); BUN (Urea Nitrogen) 16 mg/dL (9.8-20.1); Calc. Creatinine Clearance 74 mL/min (70-130); Calcium 8.4 mg/dL (7.8-10.44); Carbon Dioxide 23 mmol/L (23-31); Chloride 108 mmol/L (98-107); Glucose 149 mg/dL (83-110); Potassium 4.4 mmol/L (3.5-5.1); Sodium 137 mmol/L (136-145)
[2021-10-13] MEDS: Famotidine 20 MG TAB PO SCH ×2 (08:22→20:35)
[2021-10-13] MEDS: Lisinopril 20 MG TAB PO SCH (08:25)
[2021-10-13] MEDS: levETIRAcetam 500 MG TAB PO SCH ×2 (08:25→20:35)
[2021-10-13] MEDS: Famotidine/PF 20 mg/2ml Vial SLOW IVP SCH ×2 (08:26→20:35)
[2021-10-13] MEDS: Enoxaparin Sodium 40 MG/0.4 ML SYRINGE SC SCH (20:34)
[2021-10-13] MEDS: Morphine 4 MG/ML VIAL SLOW IVP PRN (20:35)
[2021-10-14] MEDS: Acetaminophen 500 MG TAB PO SCH ×2 (00:31→05:42)
[2021-10-14] MEDS: D5 1/2 NS w/20 mEq KCL 1,000 ML IV SCH (04:47)
[2021-10-14 05:37] LABS: #Eosinphils 0.1 thou/uL (0.0-0.7); #Lymphocytes 1.5 thou/uL (1.20-3.40); #Monocytes 0.5 thou/uL (0.11-0.59); #Neutrophils 13.6 thou/uL (1.40-6.50); %Basophils 0.1 % (0.0-1.0); %Eosinophils 0.4 % (0.0-10.0); %Lymphocytes 9.6 % (21.0-51.0); %Monocytes 3.4 % (0.0-10.0); %Neutrophils 86.4 % (42.0-75.0); Hemoglobin 12.6 g/dL (12.0-16.0); Mean Corpuscular Volume 90.6 fL (78.0-98.0); Mean Platelet Volume 6.9 fL (7.4-10.4); Platelet Count 217 thou/uL (130-400); RBC Distribution Width 17.6 % (11.5-14.5); Red Blood Cell (RBC) Count 4.34 mill/uL (4.20-5.40); White Blood Cell (WBC) Count 15.8 thou/uL (4.8-10.8)
[2021-10-14] MEDS: Ketorolac Tromethamine 30 MG/ML VIAL IVP SCH (05:42)
[2021-10-14] MEDS: Lisinopril 20 MG TAB PO SCH (09:05)
[2021-10-14] MEDS: Famotidine/PF 20 mg/2ml Vial SLOW IVP SCH (09:05)
[2021-10-14] MEDS: Famotidine 20 MG TAB PO SCH ×2 (09:05→19:51)
[2021-10-14] MEDS: levETIRAcetam 500 MG TAB PO SCH ×2 (09:05→19:55)
[2021-10-14] MEDS ORDERED: Acetaminophen 500 MG TAB PO PRN ×2 (10:57→11:00)
[2021-10-14] MEDS ORDERED: Ibuprofen 600 MG TAB PO PRN (10:57)
[2021-10-14] MEDS ORDERED: Ketorolac Tromethamine 30 MG/ML VIAL IVP PRN (10:58)
[2021-10-14] MEDS ORDERED: Morphine 4 MG/ML VIAL SLOW IVP PRN ×2 (11:10→11:12)
[2021-10-14] MEDS: Enoxaparin Sodium 40 MG/0.4 ML SYRINGE SC SCH (19:54)
[2021-10-14] MEDS: HYDROcodone/Acetaminophen 5/325 mg Tablet PO PRN (19:54)
[2021-10-14] MEDS ORDERED: Loratadine/Pseudoephedrine 10/240 mg Tablet PO SCH (21:00)
[2021-10-14] MEDS ORDERED: Rosuvastatin 10 MG TAB PO SCH ×2 (21:00)
[2021-10-15 05:10] VITALS: TEMP 98.4
[2021-10-15] MEDS: Famotidine 20 MG TAB PO SCH (08:03)
[2021-10-15] MEDS: levETIRAcetam 500 MG TAB PO SCH (08:03)
[2021-10-15] MEDS: Lisinopril 20 MG TAB PO SCH (08:03)
[2021-10-15] MEDS: HYDROcodone/Acetaminophen 5/325 mg Tablet PO PRN (08:12)
[2021-10-15 08:23] VITALS: BP 114/68
[2021-10-15] MEDS ORDERED: BIFIDOBACTERIUM INFANTIS 10.5 MG PO SCH (09:00)
[2021-10-15] MEDS ORDERED: Multivit, Therapeutic 1 TAB PO SCH (09:00)
[2021-10-15] MEDS ORDERED: Calcium Carbonate 600 MG + Vit D TAB PO SCH (09:00)
[2021-10-15] MEDS ORDERED: Potassium Chloride 8 MEQ TAB PO SCH (09:00)
[2021-10-15] MEDS ORDERED: Non-Formulary Item 1 EACH (Potassium Gluconate [Potassium] 600 MG Tablet) PO SCH (09:00)
[2021-10-15] MEDS ORDERED: Polyethylene Glycol 3350 17 GM Packet PO SCH (09:00)
[2021-10-15] MEDS ORDERED: Hydrochlorothiazide 25 MG TAB PO SCH (09:00)
[2021-10-15] MEDS ORDERED: Ascorbic Acid 500 mg Chewable Tablet PO SCH (09:00)
== END 2021-10-15 13:13 | disposition home or self-care (01) | DRG 331 ==
LOC: SURG A 10-12 05:56 → EDSTATUS 10-12 10:45 → SURG A 10-12 12:38
PROVIDERS: ADMIT Specialist; ATTEND Specialist
PROC: 0DB80ZZ Excision of Small Intestine, Open Approach (ICD-10-PCS; principal; 2021-10-12)
PROC: 0UB50ZZ Excision of Right Fallopian Tube, Open Approach (ICD-10-PCS; 2021-10-12)
PROC: 0UB00ZZ Excision of Right Ovary, Open Approach (ICD-10-PCS; 2021-10-12)
PROC: 0DBN0ZZ Excision of Sigmoid Colon, Open Approach (ICD-10-PCS; 2021-10-12)
DX: Z43.3 Encounter for attention to colostomy (principal); Z88.6 Allergy status to analgesic agent; Z88.8 Allergy status to other drugs, medicaments and biological substances; Z90.89 Acquired absence of other organs; Z90.12 Acquired absence of left breast and nipple
CPT/HCPCS: 36415; 36416; 71045; 80048; 85025; 88305; 88307; 88311; A4649; C1776; J0694; J1100; J1650; J1885; J2250; J2270; J2405; J2704; J3010; J3480; S0020; S0028

== ENCOUNTER 2021-10-07 15:06 | Outpatient (CLI) | payer MEDICARE, BC ==
[2021-10-07 15:54] LABS: #Eosinphils 0.2 10x3/uL (0.0-0.5); #Monocytes 1.2 10x3/uL (0.0-1.1); #Neutrophils 8.6 10x3/uL (1.5-8.4); %Basophils 0.4 % (0.0-2.0); %Eosinophils 1.9 % (0.0-6.0); %Lymphocytes 10.5 % (18.0-47.0); %Monocytes 10.5 % (0.0-10.0); %Neutrophils 76.3 % (40.0-75.0); Hemoglobin 13.3 g/dL (12.0-15.5); Mean Corpuscular HGB CONC 31.9 g/dL (32.0-36.0); Mean Corpuscular Hemoglobin 27.3 pg (27.0-33.0); Mean Corpuscular Volume 85.5 fl (81.6-98.3); Mean Platelet Volume 10.2 fl (7.4-10.4); Platelet Count 181 10x3/uL (150-450); Red Blood Cell (RBC) Count 4.88 10x6/uL (3.90-5.03); White Blood Cell (WBC) Count 11.3 10x3/uL (3.5-10.5)
[2021-10-07 20:47] LABS: Hemoglobin A1c 5.4 % (4.0-6.0)
[2021-10-08 12:01] LABS: SARS-CoV-2 PCR by NAA Not Detected (NotDetected)
== END 2021-10-07 15:07 | disposition home or self-care (01) ==
LOC: LABBT 15:06
PROVIDERS: ATTEND Specialist
DX: Z01.818 Encounter for other preprocedural examination (principal); Z93.3 Colostomy status; N32.1 Vesicointestinal fistula; Z90.49 Acquired absence of other specified parts of digestive tract; Z20.822 Contact with and (suspected) exposure to COVID-19
CPT/HCPCS: 71046; 83036; 85025; U0003; U0005; 93005; 93010

== ENCOUNTER 2021-12-08 23:54 | Inpatient (IN) | payer MEDICARE, BC ==
[2021-12-09] MEDS ORDERED: Acetaminophen 500 MG TAB ONE ×2 (00:20)
[2021-12-09 00:35] LABS: #Basophils 0.1 thou/uL (0.0-0.2); #Lymphocytes 0.3 thou/uL (1.20-3.40); #Monocytes 0.1 thou/uL (0.11-0.59); %Basophils 1.9 % (0.0-1.0); %Eosinophils 0.3 % (0.0-10.0); %Monocytes 1.4 % (0.0-10.0); %Neutrophils 90.4 % (42.0-75.0); Hemoglobin 13.4 g/dL (12.0-16.0); Mean Corpuscular HGB CONC 31.8 g/dL (32.0-36.0); Mean Corpuscular Hemoglobin 26.7 pg (27.0-31.0); Mean Corpuscular Volume 83.9 fL (78.0-98.0); Mean Platelet Volume 8.6 fL (7.4-10.4); Platelet Count 149 thou/uL (130-400); RBC Distribution Width 17.8 % (11.5-14.5); Red Blood Cell (RBC) Count 5.03 mill/uL (4.20-5.40); White Blood Cell (WBC) Count 5.5 thou/uL (4.8-10.8)
[2021-12-09 00:45] LABS: INR-International Normal Ratio 1.1
[2021-12-09 00:46] LABS: PTT 28.1 sec (22.9-36.1)
[2021-12-09 00:55] LABS: ALT (SGPT) 13 U/L (8-55); AST (SGOT) 25 U/L (5-34); Alkaline Phosphatase 93 U/L (40-110); Anion Gap 22 mmol/L (10-20); BUN (Urea Nitrogen) 17 mg/dL (9.8-20.1); Calc. Creatinine Clearance 0 mL/min (70-130); Calcium 10.8 mg/dL (7.8-10.44); Carbon Dioxide 19 mmol/L (23-31); Chloride 98 mmol/L (98-107); Globulin 3.9 g/dL (2.4-3.5); Glucose 110 mg/dL (83-110); Potassium 3.8 mmol/L (3.5-5.1); Protein, Total 7.9 g/dL (5.8-8.1); Sodium 135 mmol/L (136-145)
[2021-12-09] MEDS ORDERED: Cefepime 2 GM VIAL ONE (01:23)
[2021-12-09 02:17] LABS: Bacteria/HPF 2+ HPF (None Seen); Bilirubin Negative (Negative); Blood, Urine 2+ (Negative); Clarity Extra Turbid (Clear); Glucose, Urine (Dipstick) Normal (Negative); Ketone, Urine 10 mg/dL (Negative); Leukocyte 500 Leu/uL (Negative); Nitrite 2+ (Negative); Protein, Urine (Dipstick) 100 mg/dL (Neg-Trace); RBC/HPF 21-50 HPF (0-3); Specific Gravity, Urine 1.018 (1.002-1.036); Transitional Epithelial 0-3 HPF (None Seen); Urobilinogen Normal mg/dL (Less than 2); WBC/HPF Greater than 50 HPF (0-3)
[2021-12-09] MEDS ORDERED: Vancomycin 1 GM/200 ML BAG ONE (02:22)
[2021-12-09 04:06] LABS: Lactic Acid 1.4 mmol/L (0.5-2.2)
[2021-12-09] MEDS ORDERED: Dextrose 5 % And 0.9 % NaCl 1,000 ML IV SCH (05:00)
[2021-12-09] MEDS ORDERED: Sodium Chloride 0.9% 1,000 ML IV SCH (05:30)
[2021-12-09] MEDS ORDERED: Ondansetron PF 4 MG/2 ML Vial IVP PRN (08:04)
[2021-12-09] MEDS ORDERED: Metamucil PACK PO PRN (08:19)
[2021-12-09] MEDS ORDERED: Sodium Chloride 0.9% 500 ML IV SCH (08:30)
[2021-12-09] MEDS ORDERED: Enoxaparin Sodium 40 MG/0.4 ML SYRINGE SC SCH (09:00)
[2021-12-09] MEDS ORDERED: Iothalamate Meglumine 60% 50 ML VIAL FS ONE (09:40)
[2021-12-09] MEDS ORDERED: HYDROmorphone 2 MG/ML VIAL ONE (09:47)
[2021-12-09] MEDS ORDERED: Sodium Chloride 0.9% 10 ML ONE (09:47)
[2021-12-09] MEDS ORDERED: Fentanyl 100 MCG/2 ML VIAL ONE (09:47)
[2021-12-09] MEDS ORDERED: Succinylcholine 200 MG/10 ml SYRINGE FS ONE (10:39)
[2021-12-09] MEDS ORDERED: Lidocaine 1% PF 5 ML VIAL ONE (10:39)
[2021-12-09] MEDS ORDERED: PHENYLEPHRINE-NS 100 MCG/ML 10 ML SYRINGE ONE (10:39)
[2021-12-09] MEDS ORDERED: Ondansetron PF 4 MG/2 ML Vial ONE (10:39)
[2021-12-09] MEDS ORDERED: PROPOFOL 200 MG/20 ML VIAL ONE (10:39)
[2021-12-09] MEDS ORDERED: Dexamethasone 20 MG/5 ML VIAL ONE (10:39)
[2021-12-09] MEDS ORDERED: Promethazine HCl 25 MG/ML VIAL IVPB PRN (11:15)
[2021-12-09] MEDS ORDERED: Meperidine HCl/PF 25 MG/ML VIAL SLOW IVP PRN (11:15)
[2021-12-09] MEDS ORDERED: Ondansetron HCl/PF 4 MG/2 ML Vial IVP PRN (11:15)
[2021-12-09] MEDS ORDERED: Promethazine HCl 25 MG/ML VIAL IM PRN (11:15)
[2021-12-09] MEDS ORDERED: Phenazopyridine HCl 100 MG TAB PO PRN (11:49)
[2021-12-09 12:30] LABS: SARS-CoV-2 PCR by NAA Not Detected (NotDetected)
[2021-12-09] MEDS: NS 0.9% w/ 20 MEQ KCL 1,000 ML/1,000 ML BAG IV SCH (23:24)
[2021-12-09] MEDS: Cefepime 2 GM in Sodium Chloride 0.9% 100 ML IVPB SCH (23:24)
[2021-12-09] MEDS: Saccharomyces boulardii 250 MG CAP PO SCH (23:27)
[2021-12-10] MEDS: NS 0.9% w/ 20 MEQ KCL 1,000 ML/1,000 ML BAG IV SCH ×2 (00:09→08:59)
[2021-12-10] MEDS: Cefepime 2 GM in Sodium Chloride 0.9% 100 ML IVPB SCH ×2 (00:10→15:18)
[2021-12-10] MEDS: Docusate 100 MG CAP PO SCH ×3 (00:10→20:13)
[2021-12-10] MEDS: Trospium 20 MG TAB PO SCH ×3 (00:10→20:13)
[2021-12-10] MEDS: Rosuvastatin 20 MG TAB PO SCH ×2 (00:10→20:14)
[2021-12-10] MEDS: Acetaminophen 325 MG TAB PO PRN ×2 (00:14→20:13)
[2021-12-10] MEDS ORDERED: Vancomycin 1 GM in Premix Bag 1 BAG IVPB SCH (03:00)
[2021-12-10 04:49] LABS: #Lymphocytes 0.9 thou/uL (1.20-3.40); #Monocytes 0.9 thou/uL (0.11-0.59); #Neutrophils 13.2 thou/uL (1.40-6.50); %Basophils 0.1 % (0.0-1.0); %Eosinophils 0.1 % (0.0-10.0); %Lymphocytes 5.7 % (21.0-51.0); %Neutrophils 88.1 % (42.0-75.0); Hemoglobin 9.8 g/dL (12.0-16.0); Mean Corpuscular HGB CONC 31.1 g/dL (32.0-36.0); Mean Corpuscular Hemoglobin 26.8 pg (27.0-31.0); Mean Corpuscular Volume 86.2 fL (78.0-98.0); Mean Platelet Volume 8.9 fL (7.4-10.4); Platelet Count 108 thou/uL (130-400); RBC Distribution Width 17.4 % (11.5-14.5); Red Blood Cell (RBC) Count 3.65 mill/uL (4.20-5.40); White Blood Cell (WBC) Count 14.9 thou/uL (4.8-10.8)
[2021-12-10 04:58] LABS: Anion Gap 14 mmol/L (10-20); BUN (Urea Nitrogen) 12 mg/dL (9.8-20.1); Calc. Creatinine Clearance 81 mL/min (70-130); Calcium 8.1 mg/dL (7.8-10.44); Carbon Dioxide 17 mmol/L (23-31); Chloride 112 mmol/L (98-107); Glucose 151 mg/dL (83-110); Potassium 3.4 mmol/L (3.5-5.1); Sodium 140 mmol/L (136-145)
[2021-12-10 07:09] VITALS: BMI 26.5
[2021-12-10] MEDS: Saccharomyces boulardii 250 MG CAP PO SCH (08:57)
[2021-12-10] MEDS ORDERED: levETIRAcetam 500 MG TAB PO SCH (12:45)
[2021-12-10] MEDS: levETIRAcetam 500 MG TAB PO SCH (20:14)
[2021-12-11] MEDS: Cefepime 2 GM in Sodium Chloride 0.9% 100 ML IVPB SCH (00:26)
[2021-12-11 04:15] LABS: #Eosinphils 0.1 thou/uL (0.0-0.7); #Lymphocytes 1.1 thou/uL (1.20-3.40); #Monocytes 0.8 thou/uL (0.11-0.59); #Neutrophils 9.2 thou/uL (1.40-6.50); %Basophils 0.1 % (0.0-1.0); %Eosinophils 1.2 % (0.0-10.0); %Lymphocytes 9.4 % (21.0-51.0); %Monocytes 7.5 % (0.0-10.0); %Neutrophils 81.8 % (42.0-75.0); Hemoglobin 10.8 g/dL (12.0-16.0); Mean Corpuscular Hemoglobin 27.4 pg (27.0-31.0); Mean Corpuscular Volume 85.7 fL (78.0-98.0); Mean Platelet Volume 9.2 fL (7.4-10.4); Platelet Count 119 thou/uL (130-400); RBC Distribution Width 17.4 % (11.5-14.5); Red Blood Cell (RBC) Count 3.93 mill/uL (4.20-5.40); White Blood Cell (WBC) Count 11.2 thou/uL (4.8-10.8)
[2021-12-11 04:42] LABS: Anion Gap 13 mmol/L (10-20); BUN (Urea Nitrogen) 13 mg/dL (9.8-20.1); Calc. Creatinine Clearance 77 mL/min (70-130); Calcium 8.4 mg/dL (7.8-10.44); Carbon Dioxide 21 mmol/L (23-31); Chloride 111 mmol/L (98-107); Glucose 99 mg/dL (83-110); Magnesium 1.6 mg/dL (1.6-2.6); Potassium 3.1 mmol/L (3.5-5.1); Sodium 142 mmol/L (136-145)
[2021-12-11] MEDS ORDERED: Cefdinir 300 MG CAP PO SCH (09:00)
[2021-12-11] MEDS: Trospium 20 MG TAB PO SCH (10:05)
[2021-12-11] MEDS: levETIRAcetam 500 MG TAB PO SCH (10:07)
[2021-12-11] MEDS: Saccharomyces boulardii 250 MG CAP PO SCH (10:07)
[2021-12-11] MEDS: Docusate 100 MG CAP PO SCH (10:08)
[2021-12-11 12:21] VITALS: TEMP 98.3
[2021-12-11 13:31] VITALS: BP 143/54
== END 2021-12-11 16:45 | disposition home or self-care (01) | DRG 854 ==
LOC: ERS 23:54 → ERHOLD 12-09 02:49 → SURG A 12-09 09:55 → IMCU/EMU 12-09 21:26
PROVIDERS: ADMIT Student in an Organized Health Care Education/Training Program; ATTEND Internal Medicine
PROC: BT1D1ZZ Fluoroscopy of Right Kidney, Ureter and Bladder using Low Osmolar Contrast (ICD-10-PCS; principal; 2021-12-09)
PROC: 0T768DZ Dilation of Right Ureter with Intraluminal Device, Via Natural or Artificial Opening Endoscopic (ICD-10-PCS; 2021-12-09)
PROC: 0T9B80Z Drainage of Bladder with Drainage Device, Via Natural or Artificial Opening Endoscopic (ICD-10-PCS; 2021-12-09)
DX: A41.51 Sepsis due to Escherichia coli [E. coli] (principal); N13.6 Pyonephrosis; N20.1 Calculus of ureter; A41.9 Sepsis, unspecified organism; I10 Essential (primary) hypertension; N35.92 Unspecified urethral stricture, female; D64.9 Anemia, unspecified; R09.89 Other specified symptoms and signs involving the circulatory and respiratory systems; E78.5 Hyperlipidemia, unspecified; Z20.822 Contact with and (suspected) exposure to COVID-19; K59.00 Constipation, unspecified; E83.52 Hypercalcemia; E87.6 Hypokalemia; Z85.3 Personal history of malignant neoplasm of breast; Z90.10 Acquired absence of unspecified breast and nipple; Z88.8 Allergy status to other drugs, medicaments and biological substances; Z87.898 Personal history of other specified conditions
CPT/HCPCS: 36415; 74176; 74420; 80048; 80053; 81003; 81015; 83605; 83735; 85025; 85610; 85730; 87040; 87077; 87086; 87186; 93005; C2617; J0692; J1100; J1170; J2405; J2704; J3010; J3370; J3480; J3490; J7050; Q9961-U8; U0003; U0005

== ENCOUNTER 2022-01-01 06:58 | Outpatient (CLI) | payer MEDICARE, BC ==
[2022-01-01 10:16] LABS: Hemoglobin 12.9 g/dL (12.0-15.5); Mean Corpuscular HGB CONC 29.3 g/dL (32.0-36.0); Mean Corpuscular Hemoglobin 25.4 pg (27.0-33.0); Mean Corpuscular Volume 86.8 fl (81.6-98.3); Mean Platelet Volume 10.6 fl (7.4-10.4); Platelet Count 172 10x3/uL (150-450); RBC Distribution Width 18.9 % (11.5-14.5); Red Blood Cell (RBC) Count 5.07 10x6/uL (3.90-5.03); White Blood Cell (WBC) Count 7.4 10x3/uL (3.5-10.5)
[2022-01-01 10:30] LABS: Anion Gap 15 mmol/L (10-20); BUN (Urea Nitrogen) 20 mg/dL (9.8-20.1); Calc. Creatinine Clearance 0 mL/min (70-130); Calcium 9.4 mg/dL (7.8-10.44); Carbon Dioxide 27 mmol/L (23-31); Chloride 105 mmol/L (98-107); Glucose 79 mg/dL (83-110); Potassium 3.9 mmol/L (3.5-5.1); Sodium 143 mmol/L (136-145)
[2022-01-01 10:31] LABS: PTT 24.4 sec (22.0-33.0); Prothrombin Time 10.6 sec (9.5-12.1)
[2022-01-01 18:45] LABS: SARS-CoV-2 PCR by NAA Not Detected (NotDetected)
== END 2022-01-01 06:59 | disposition home or self-care (01) ==
LOC: LABBT 06:58
PROVIDERS: ATTEND Urology
DX: Z01.818 Encounter for other preprocedural examination (principal); N13.5 Crossing vessel and stricture of ureter without hydronephrosis; N32.1 Vesicointestinal fistula; K57.32 Diverticulitis of large intestine without perforation or abscess without bleeding; E66.9 Obesity, unspecified; N39.0 Urinary tract infection, site not specified; D25.9 Leiomyoma of uterus, unspecified; I21.4 Non-ST elevation (NSTEMI) myocardial infarction; Z20.822 Contact with and (suspected) exposure to COVID-19
CPT/HCPCS: 80048; 85027; 85610; 85730; 93005; U0003; U0005; 93010

== ENCOUNTER 2024-01-16 10:02 | Outpatient (CLI) | payer MEDICARE | END 2024-01-16 10:03 | disposition home or self-care (01) | LOC: ULT 10:02 | PROVIDERS: ATTEND Urology | DX: N13.5 Crossing vessel and stricture of ureter without hydronephrosis (principal); N32.1 Vesicointestinal fistula; E66.9 Obesity, unspecified | CPT/HCPCS: 76770 ==